=== PATIENT | male | born 1960 | race Caucasian/White ===

== ENCOUNTER 2016-02-13 11:00 | Outpatient (CLI) | payer OTHER | END 2016-02-13 11:01 | disposition home or self-care (01) | DX: L02.91 Cutaneous abscess, unspecified (principal) ==

== ENCOUNTER 2019-03-29 18:33 | Emergency (ER) | payer BC, OTHER ==
[2019-03-29 18:51] VITALS: BP 101/61
--- NOTE | 2019-03-29 20:47 | ED Physician Documentation ---
PD HPI HEENT - Stated complaint Stated Complaint: L EAR REDNESS - Chief complaint Chief Complaint: Heent - History obtained from History obtained from: Patient - History of Present Illness Timing - onset: Yesterday Timing - details: Gradual onset Pain level now: 6 Location: Left ear Improves: Nothing Worsens: Other (palpation) Associated symptoms: Swollen nodes. No: Fever, Congestion, Headache, Cough Similar symptoms before: Has not had sx before Recently seen: Not recently seen - Additional information Additional information: c/o left ear pain, redness, swelling since yesterday, denies injury and denies h/o similar symptoms Review of Systems Constitutional: reports: Reviewed and negative Ears: reports: Ear pain. denies: Loss of hearing, Drainage/discharge, Tinnitus/ringing Nose: reports: Reviewed and negative PD PAST MEDICAL HISTORY - Past Medical History Past Medical History: Yes Cardiovascular: None Respiratory: None Neuro: None Endocrine/Autoimmune: None GI: None : Kidney stones HEENT: None Psych: None Musculoskeletal: None Derm: None - Past Surgical History Past Surgical History: Yes General: Colonoscopy - Present Medications Home Medications: Ambulatory Orders Medication Instructions Recorded Confirmed Cephalexin [Keflex] 500 mg PO Q6H #28 capsule 03/29/19 Hydrocodone/Acetaminophen 1 - 2 each PO Q6H PRN #14 tablet 03/29/19 [Hydrocodon-Acetaminophen 5-325] Sulfamethox/Trimeth 800/160 1 each PO BID #14 tablet 03/29/19 [Bactrim Ds 800/160] - Allergies Allergies/Adverse Reactions: Allergies Allergy/AdvReac Type Severity Reaction Status Date / Time No Known Drug Allergies Allergy Verified 03/29/19 18:48 - Social History Does the pt smoke?: No Smoking Status: Never smoker Does the pt drink ETOH?: Yes Does the pt have substance abuse?: No - Immunizations Immunizations are current?: No - POLST Patient has POLST: No PD ED PE NORMAL - Vitals Vital signs reviewed: Yes - General General: Alert and oriented X 3, No acute distress, Well developed/nourished PD ED PE EXPANDED - HEENT HEENT Visual: 1 - tenderness (Erythema, swelling, tenderness without fluctuance) Results - Vitals Vitals: Oxygen O2 Source Room air PD MEDICAL DECISION MAKING - ED course Complexity details: considered differential, d/w patient Departure - Departure Disposition: 01 Home, Self Care Clinical Impression: Cellulitis of ear Condition: Good Instructions: ED Cellulitis Facial Follow-Up: Ebenezer Kennedy MD [Primary Care Provider] - (3-5 days if not improving) Prescriptions: Cephalexin [Keflex] 500 mg PO Q6H #28 capsule Hydrocodone/Acetaminophen [Hydrocodon-Acetaminophen 5-325] 1 - 2 each PO Q6H PRN #14 tablet PRN Reason: pain Sulfamethox/Trimeth 800/160 [Bactrim Ds 800/160] 1 each PO BID #14 tablet Discharge Date/Time: 03/29/19 21:45
[2019-03-29] MEDS ORDERED: cephALEXin 250 MG CAPSULE PO STA (21:01)
[2019-03-29] MEDS ORDERED: SULFAMETH/TRIMETH DS 800/160 MG TABLET PO STA (21:03)
[2019-03-29] MEDS ORDERED: IBUPROFEN 600 MG TABLET PO STA (21:03)
[2019-03-29] MEDS ORDERED: HYDROcod/ACET 5/325 Prepack 4 PO STA (21:03)
== END 2019-03-29 21:45 | disposition home or self-care (01) ==
LOC: ED 18:33
DX: H60.12 Cellulitis of left external ear (principal)
CPT/HCPCS: 99281; 99283; A9270

== ENCOUNTER 2020-09-19 06:25 | Day surgery (SDC) | payer BC ==
[2020-09-19] MEDS ORDERED: LACTATED RINGERS 1,000 ML IV ONE ×2 (06:57→07:54)
[2020-09-19] MEDS ORDERED: MIDAZOLAM 2 MG/2 ML VIAL ONE (07:20)
[2020-09-19] MEDS ORDERED: fentaNYL 250 MCG/5 ML VIAL ONE (07:20)
[2020-09-19 08:28] VITALS: BP 122/80
== END 2020-09-19 06:26 | disposition home or self-care (01) ==
LOC: SDS 06:25
PROVIDERS: ATTEND Surgery
DX: K57.30 Diverticulosis of large intestine without perforation or abscess without bleeding (principal); K64.8 Other hemorrhoids; Z86.010 Personal history of colon polyps
CPT/HCPCS: 45378; J3010; J7120

== ENCOUNTER 2020-11-08 16:10 | Outpatient (CLI) | payer BC ==
[2020-11-08 19:48] LABS: HCT - HEMATOCRIT 45.9 % (42.0-52.0); HGB - HEMOGLOBIN 15.6 g/dL (14.0-18.0); MEAN CORPUSCULAR VOLUME 91.1 fL (80.0-94.0); MEAN PLATELET VOLUME 9.8 fL (7.4-11.4); RED BLOOD COUNT 5.04 10^6/uL (4.70-6.10); WHITE BLOOD COUNT 6.8 x10^3/uL (4.8-10.8)
[2020-11-08 20:09] LABS: ALBUMIN 4.4 g/dL (3.2-5.5); ALBUMIN/GLOBULIN RATIO 1.5 (1.0-2.2); BILIRUBIN,TOTAL 0.8 mg/dL (0.2-1.0); CALCIUM 9.5 mg/dL (8.5-10.3); CREATININE 0.8 mg/dL (0.6-1.2); CRP - C-REACTIVE PROTEIN 1.2 mg/dL (0-1.0); POTASSIUM 3.8 mmol/L (3.5-5.0); TOTAL PROTEIN 7.3 g/dL (6.7-8.2)
[2020-11-08 20:13] LABS: RHEUMATOID FACTOR NEGATIVE (Negative)
[2020-11-08 20:20] LABS: THYROID STIMULATING HORMONE 1.73 uIU/mL (0.34-5.60)
[2020-11-08 20:21] LABS: FREE T3 3.11 pg/mL (2.5-3.9)
[2020-11-08 20:22] LABS: FREE T4 (FREE THYROXINE) 0.61 ng/dL (0.58-1.64)
[2020-11-13 23:11] LABS: ANA PATTERN Nuclear, Homogeneous; ANA SCREEN POSITIVE (NEGATIVE)
== END 2020-11-08 16:11 | disposition home or self-care (01) ==
LOC: LAB.S 16:10
PROVIDERS: ATTEND Family Medicine
DX: M60.9 Myositis, unspecified (principal)
CPT/HCPCS: 36415; 80053; 84439; 84443; 84481; 85025; 85027; 85651; 86038; 86140; 86430